=== PATIENT | male | born 1970 | race Caucasian/White ===

== ENCOUNTER 2018-04-03 16:46 | Emergency (ER) | payer OTHER ==
--- NOTE | 2018-04-03 17:19 | ER Document Report ---
ED Medical Screen (RME) - General Chief Complaint: High Blood Pressure Stated Complaint: BP ISSUE Time Seen by Provider: 04/03/18 17:18 Notes: 47 years old male presents today with left arm numbness tingling sensation, elevated blood pressure for the last few weeks. Fluctuating between 140 270 systole. He stopped taking any blood pressure medicines. Has not seen his primary care physician in the recent past. Examination is benign TRAVEL OUTSIDE OF THE [place] IN LAST 30 DAYS: No - Related Data Allergies/Adverse Reactions: No Known Allergies Allergy (Unverified 04/03/18 16:47) Past Medical History - Social History Frequency of alcohol use: Social Renal/ Medical History: Denies: Hx Peritoneal Dialysis Physical Exam - Vital signs Vitals: Temp Pulse Resp BP Pulse Ox 98.5 F 65 18 158/103 H 99 04/03/18 16:52 04/03/18 16:52 04/03/18 16:52 04/03/18 16:52 04/03/18 16:52 Course - Vital Signs Vital signs: Temp Pulse Resp BP Pulse Ox 98.5 F 65 18 158/103 H 99 04/03/18 16:52 04/03/18 16:52 04/03/18 16:52 04/03/18 16:52 04/03/18 16:52
[2018-04-03] MEDS ORDERED: METOPROLOL SUCCINATE 50 MG TAB.SR.24H PO ONE (17:20)
[2018-04-03] MEDS ORDERED: ASPIRIN 81 MG TABLET, CHEWABLE PO ONE (17:20)
[2018-04-03] MEDS ORDERED: LOSARTAN POTASSIUM 50 MG TABLET PO ONE (17:30)
[2018-04-03 17:59] LABS: ABSOLUTE BASOPHILS # (AUTO) 0.1 10^3/uL (0.0-0.2); ABSOLUTE EOSINOPHILS # (AUTO) 0.1 10^3/uL (0.0-0.6); ABSOLUTE LYMPHOCYTES (AUTO) 1.7 10^3/uL (0.5-4.7); ABSOLUTE MONOCYTES (AUTO) 0.6 10^3/uL (0.1-1.4); ABSOLUTE NEUT (AUTO) 4.2 10^3/uL (1.7-8.2); BASOPHILS % (AUTO) 0.9 % (0-2); EOSINOPHILS % (AUTO) 2.2 % (0-6); HEMATOCRIT 43.5 % (37.9-51.0); LYMPHOCYTES % (AUTO) 25.7 % (13-45); MEAN CORPUSCULAR HEMOGLOBIN 29.1 pg (27.0-33.4); MEAN CORPUSCULAR HGB CONC 34.5 g/dL (32.0-36.0); MEAN CORPUSCULAR VOLUME 84 fl (80-97); MONOCYTES % (AUTO) 8.6 % (3-13); PLATELET COUNT 278 10^3/uL (150-450); RED BLOOD COUNT 5.15 10^6/uL (4.35-5.55); SEGMENTED NEUTROPHILS % (AUTO) 62.6 % (42-78); TOTAL CELLS COUNTED % (AUTO) 100 %; WHITE BLOOD COUNT 6.7 10^3/uL (4.0-10.5)
[2018-04-03 18:19] LABS: ALANINE AMINOTRANSFERASE 23 U/L (21-72); ALKALINE PHOSPHATASE 121 U/L (38-126); ANION GAP 11 (5-19); ASPARTATE AMINO TRANSFERASE 32 U/L (17-59); BILIRUBIN,DIRECT 0.3 mg/dL (0.0-0.4); BILIRUBIN,TOTAL 0.8 mg/dL (0.2-1.3); BLOOD UREA NITROGEN 12 mg/dL (7-20); CALCIUM 9.9 mg/dL (8.4-10.2); CARBON DIOXIDE 31 mmol/L (22-30); CHLORIDE 100 mmol/L (98-107); CREATINE KINASE 69 U/L (55-170); GLUCOSE 95 mg/dL (75-110); POTASSIUM 4.4 mmol/L (3.6-5.0); SODIUM 141.6 mmol/L (137-145); TOTAL PROTEIN 8.8 g/dL (6.3-8.2)
[2018-04-03 18:30] LABS: CREATINE KINASE MB 0.58 ng/mL (<4.55)
[2018-04-03 18:36] LABS: TROPONIN I < 0.012 ng/mL
[2018-04-03 18:55] VITALS: BP 159/101
--- NOTE | 2018-04-03 18:58 | ER Document Report ---
ED General - General Chief Complaint: High Blood Pressure Stated Complaint: BP ISSUE Time Seen by Provider: 04/03/18 17:18 Notes: Patient is a 47-year-old male without chronic medical problems who presents with complaints of essential hypertension as well as chronic headaches. The patient states that he has had at least 2 years of intermittent headaches that are a global, throbbing, mild headache that generally spontaneously resolve. He states for several years he thought that these were sinus headaches but recently has become concerned they are related to his blood pressure. He was seen at an urgent care regarding his blood pressure last week, was told to come to the emergency department if his systolic blood pressure went over 150. He took his blood pressure today and it was 167 on 111 prompting him to come to the hospital. He also states that he had a shooting pain down his left arm today which has likewise resolved. He denies any chest pain, shortness of breath, nausea, vomiting or diaphoresis. He currently denies any symptoms of any kind. He does not currently take anything for blood pressure. TRAVEL OUTSIDE OF THE [place] IN LAST 30 DAYS: No - Related Data Allergies/Adverse Reactions: No Known Allergies Allergy (Unverified 04/03/18 16:47) Past Medical History - General Information source: Patient - Social History Smoking Status: Never Smoker Frequency of alcohol use: Social Drug Abuse: None Lives with: Spouse/Significant other Family History: Reviewed & Not Pertinent Patient has suicidal ideation: No Patient has homicidal ideation: No Renal/ Medical History: Denies: Hx Peritoneal Dialysis Review of Systems - Review of Systems Notes: Constitutional: Negative for fever. HENT: Negative for sore throat. Eyes: Negative for visual changes. Cardiovascular: Negative for chest pain. Respiratory: Negative for shortness of breath. Gastrointestinal: Negative for abdominal pain, vomiting or diarrhea. Genitourinary: Negative for dysuria. Musculoskeletal: Negative for back pain. Skin: Negative for rash. Neurological: Positive for intermittent headaches 10 point ROS negative except as marked above and in HPI. Physical Exam - Vital signs Vitals: Temp Pulse Resp BP Pulse Ox 98.5 F 65 18 158/103 H 99 04/03/18 16:52 04/03/18 16:52 04/03/18 16:52 04/03/18 16:52 04/03/18 16:52 Interpretation: Hypertensive Notes: PHYSICAL EXAMINATION: GENERAL: Well-appearing, well-nourished and in no acute distress. HEAD: Atraumatic, normocephalic. EYES: Pupils equal round and reactive to light, extraocular movements intact, sclera anicteric, conjunctiva are normal. ENT: nares patent, oropharynx clear without exudates. Moist mucous membranes. NECK: Normal range of motion, supple without lymphadenopathy LUNGS: Breath sounds clear to auscultation bilaterally and equal. No wheezes rales or rhonchi. HEART: Regular rate and rhythm without murmurs ABDOMEN: Soft, nontender, normoactive bowel sounds. No guarding, no rebound. No masses appreciated. EXTREMITIES: Normal range of motion, no pitting or edema. No cyanosis. NEUROLOGICAL: Face symmetric. Tongue protrudes midline. Extraocular motions intact. Pupils are 2 mm and equally reactive. Normal speech, normal gait. 5 out of 5 strength in both the distal and proximal upper and lower extremities bilaterally. Sensation is grossly intact throughout. Finger to nose testing normal. Pronator drift normal. PSYCH: Normal mood, normal affect. SKIN: Warm, Dry, normal turgor, no rashes or lesions noted. Course - Re-evaluation Re-evalutation: 04/03/18 18:54 Presentation of asymptomatic hypertension. Patient denies any symptoms concerning for SAH, dissection, MO, or encephalopaty. Alert, oriented, and denies any symptoms at time of assessment although apparently complained of some left arm shooting pain earlier today which has likewise resolved. Patient has frequent headaches, nothing different today. Normal neuro exam. Labs and EKG obtained in triage are noted to be unremarkable. I have started the patient on lisinopril 10 mg daily but I have advised that dietary changes and moderate weight loss are to be sought after as these may obviate the need for blood pressure medications. At this time will discharge with return precautions and follow-up recommendations. Verbal discharge instructions given a the bedside and opportunity for questions given. Medication warnings reviewed. Patient is in agreement with this plan and has verbalized understanding of return precautions and the need for primary care follow-up in the next 24-72 hours. - Vital Signs Vital signs: Temp Pulse Resp BP Pulse Ox 98.5 F 65 18 158/103 H 97 04/03/18 16:52 04/03/18 16:52 04/03/18 16:52 04/03/18 16:52 04/03/18 17:47 - Laboratory Result Diagrams: 04/03/18 17:41 04/03/18 17:41 Laboratory results interpreted by me: 04/03/18 17:41 Carbon Dioxide 31 H Total Protein 8.8 H - EKG Interpretation by Me Additional EKG results interpreted by me: 04/03/18 18:55 Sinus rhythm. Rate 61. No ST elevations or depressions. QTC is 411. Discharge - Discharge Clinical Impression: Essential hypertension Chronic headaches Qualifiers: Headache type: unspecified Intractability: not intractable Qualified Code(s): R51 - Headache Condition: Good Disposition: HOME, SELF-CARE Additional Instructions: You were seen today for blood pressure that was high. This is a long-term risk factor for multiple medical problems including heart attack and stroke. However, the blood pressure in of itself will not cause you to have an acute stroke or heart attack over the course of just several days or weeks. You need to have a gradual reduction of your blood pressure back to normal levels over the next several months in conjunction with your primary care physician. Return if you develop worsening headache, weakness, numbness, chest pain, pass out, or have any other symptoms that are concerning to you. Please begin lisinopril as prescribed. Prescriptions: Lisinopril 10 mg PO DAILY #30 tablet Referrals: [facility] MD [Primary Care Provider] - Follow up as needed
--- NOTE | 2018-04-03 19:23 | EKG REPORT ---
SEVERITY:- OTHERWISE NORMAL ECG - SINUS ARRHYTHMIA, RATE 51-71 : Confirmed by: Justin Ashley MD 03-Apr-2018 19:22:45
== END 2018-04-03 19:03 | disposition home or self-care (01) ==
LOC: ER 16:46
DX: I10 Essential (primary) hypertension (principal); R51 Headache
CPT/HCPCS: 36415; 80053; 82550; 82553; 84484; 85025; 93005; 93010; 99284